=== PATIENT | male | born 1990 | race Caucasian/White ===

== ENCOUNTER 2020-06-22 23:17 | Emergency (ER) | payer OTHER ==
[~2020-06-22] VITALS: Ht 160 cm; Wt 60.0 kg
[2020-06-22 23:20] VITALS: BP 125/80
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
== END 2020-06-23 00:18 | disposition home or self-care (01) ==
LOC: ED 06-23 00:10
DX: S01.112A Laceration without foreign body of left eyelid and periocular area, initial encounter (principal); Z72.9 Problem related to lifestyle, unspecified; Y04.8XXA Assault by other bodily force, initial encounter; Y93.89 Activity, other specified; Y92.488 Other paved roadways as the place of occurrence of the external cause; Y99.8 Other external cause status
CPT/HCPCS: 99283